=== PATIENT | female | born 1985 | race Caucasian/White ===

== ENCOUNTER 2021-06-27 10:11 | Inpatient (IN) ==
[2021-06-27] MEDS ORDERED: ACETAMINOPHEN 1000 MG/100 ML IV IV STA (11:38)
[2021-06-27] MEDS ORDERED: SODIUM CHLORIDE 0.9% 1000ML 1,000 ML IV ONE (11:38)
[2021-06-27] MEDS ORDERED: ONDANSETRON INJ 2 MG/ML 2 ML VIAL IV STA (11:38)
[2021-06-27 11:57] LABS: Basophils # (auto) 0.01 K/uL (0-0.2); Basophils % (auto) 0.1 %; Hematocrit (blood only) 36.4 % (37-47); Hemoglobin 12.8 g/dL (12.0-16.0); Immature Granulocytes # (auto) 0.08 K/uL (0.00-0.02); Immature Granulocytes % (auto) 0.6 %; Lymphocytes % (auto) 5.8 %; Mean Corpuscular Hemoglobin 31.1 pg (25-34); Mean Corpuscular Hgb Conc 35.2 g/dL (32-36); Mean Corpuscular Volume 88.3 fL (80-100); Monocytes # (auto) 0.55 K/uL (0.11-0.59); Neutrophils # (auto) 12.47 K/uL (1.4-6.5); Neutrophils % (auto) 89.5 %; Platelet Count 225 K/uL (130-400); RDW Coefficient of Variation 12.6 % (11.5-14.5); RDW Standard Deviation 40.8 fL (36.4-46.3); Red Blood Count 4.12 M/uL (4.2-5.4); White Blood Count 13.91 K/uL (4.8-10.8)
--- NOTE | 2021-06-27 12:08 | Emergency Department Note ---
History of Present Illness General Chief complaint: Abdominal Pain Stated complaint: Abdominal Pain Time Seen by Provider: 06/27/21 10:40 History of Present Illness Maximum Pain Intensity: 9 36-year-old female who presents to the emergency department with her for evaluation of left lower quadrant and left flank pain. Patient has also had generalized abdominal pain and diarrhea since awakening this morning. The patient is currently 7 weeks per ultrasound and [facility]. Her ultrasound was performed on 06/13/2021, showing a gestational sac measuring 5 weeks 2 days. It was recommended that the patient have another repeat ultrasound in 2 to 3 weeks. The patient reports that her pain is constant. She has had nausea and chills with one episode of vomiting this morning. The patient denies any preceding urinary symptoms. This is the patient's second with her first being a full-term vaginal delivery. The patient rates her discomfort a 9 out of 10. The patient has had a prior history of kidney stone, but reports that this feels different. Home Medications Medication Instructions Recorded Confirmed Type aspirin 81 mg tablet,delayed 81 mg PO DAILY 06/27/21 06/27/21 History release folic acid 1 mg tablet 1 mg PO DAILY 06/27/21 06/27/21 History Allergies Allergy/AdvReac Type Severity Reaction Status Date / Time No Known Allergies Allergy Unverified 06/27/21 11:25 Past Med/Surg History Medical History No significant past medical history Surgical History No significant past surgical history Social History Smoking Status: Never smoker Preferred Language: Lao marital status: Current Living Situation: Spouse and Family Feels Safe at Home: Yes Assistive Devices: Glasses Review of Systems Review of systems was limited secondary to language barrier, with abbreviated pertinent positives and negatives as indicated in HPI, and reviewed with the patient and . Physical Exam Vital Signs Vital Signs - 24 hr 06/27/21 10:26 06/27/21 12:56 06/27/21 14:50 Temperature 36.9 C Temperature Source Temporal Artery Scan Pulse Rate 75 Pulse Rate [Finger] 66 68 Respiratory Rate 18 20 20 Respiratory Effort / Characteristics Non-Labored Spontaneous Non-Labored Spontaneous Non-Labored Spontaneous Respiratory Depth Normal Normal Normal Respiratory Pattern Regular Regular Regular Blood Pressure 118/79 Blood Pressure [Right Arm] 122/89 123/78 Blood Pressure Mean 92 Blood Pressure Mean [Right Arm] 100 93 Blood Pressure Position Sitting Blood Pressure Position [Right Arm] Lying Pulse Oximetry 99 100 100 Oxygen Delivery Method Room Air Room Air Room Air Sepsis Recent Fever Within 48 Hours No Sepsis New/Unexplained Change in Mental Status N/A Sepsis Action Taken by Nursing No Action Required CONSTITUTIONAL: Healthy and well nourished. Patient appears in moderate discomfort. HEENT: Normocephalic, atraumatic. No obvious scleral icterus or conjunctival injection/pallor. RESPIRATORY: Clear to auscultation bilaterally with no wheezing, crackles, rhonchi or stridor. CARDIOVASCULAR: Regular rate and rhythm with no murmurs, rubs or gallops. GASTROINTESTINAL: Bowel sounds present in all quadrants. Examination shows left lower quadrant tenderness to palpation. Positive left CVA tenderness. Negative McBurney's point tenderness. No rigidity, guarding or rebound. MUSCULOSKELETAL: Full range of motion of all joints without discomfort. INTEGUMENTARY: No rash or other significant dermatologic conditions noted. HEMATOLOGIC: No ecchymosis or petechiae. PSYCHIATRIC: Positive affect. NEUROLOGIC: No focal neurologic deficits noted. Course Course Patient history and physical exam were performed. Nurses notes were reviewed. Vital signs were reviewed and were normal. IV access was established, and labs were drawn. The patient was hydrated with a liter normal saline, and was administered IV Tylenol and Zofran for pain. Review of labs shows an elevated white count of almost 14,000 with left shift and a percent bandemia. CMP shows mild hyponatremia, otherwise creatinine and LFTs are normal. Quantitative hCG is consistent with gestational age. Urinalysis is not suggestive of infection, however urine cultures were ordered. OB ultrasound shows a normal single intrauterine gestation with approximated gestational age of 7 weeks and 5 days. Renal ultrasound shows mild left-sided hydroureteronephrosis secondary to a 5 mm obstructing calculus of the distal left ureter. Patient also has gallbladder distention with cholelithiasis, and no obvious gallbladder wall thickening, pericholecystic fluid or common bile duct dilatation that would be consistent with atypical cholecystitis. Findings were discussed with the patient and . The patient reported persistent poor pain control, which is to be expected with only IV Tylenol. I did recommend administering a small amount of IV opioid to help further with the pain. The patient and had a lot of questions regarding the safety of opioids during . I explained that long-term use is more of a concern as opposed to short-term use, however it is impossible to totally negate the risk during . With shared medical decision making, the patient and elected to have administration of something stronger for pain. The case was also discussed with Dr. Kumar, ED attending physician, who recommended discussing the case with urology. I did have a phone call with [facility], who indicated that they would not attempt any type of intervention with the patient, and if she were to develop an infection, would likely need to be transferred to a tertiary care facility for further management. They do feel that the patient is an acceptable risk, and did recommend hospital observation. I then discussed the case further with the Dr. Cortes, [facility] Hospitalist, who evaluated the patient and agrees to observation status with IV hydration and analgesics as needed. Dr. Cortes also agreed to administer IV antibiotics to hopefully prevent risk for infection. Please see her dictation for further treatment and final disposition. Administered Medications Discontinued Medications Acetaminophen (Acetaminophen 1000 Mg/100 Ml Iv) 1,000 mg IV NOW STA Stop: 06/27/21 11:39 Last Admin: 06/27/21 11:54 Dose: 1,000 mg Documented by: [id number] Sodium Chloride (Nss 1000ml) 1,000 mls @ 999 mls/hr IV .Q1H1M ONE Stop: 06/27/21 12:38 Last Infusion: 06/27/21 12:57 Dose: 0 mls/hr Documented by: [id number] Admin: 06/27/21 11:54 Dose: 999 mls/hr Documented by: [id number] Morphine Sulfate (Morphine Sulfate 4 Mg/Ml 1 Ml Carp\Vial) 4 mg IV NOW STA Stop: 06/27/21 13:47 Last Admin: 06/27/21 14:02 Dose: 4 mg Documented by: [id number] Ondansetron HCl (Ondansetron Inj 2 Mg/Ml 2 Ml Vial) 4 mg IV NOW STA Stop: 06/27/21 11:39 Last Admin: 06/27/21 11:54 Dose: 4 mg Documented by: [id number] Medical Decision Making Medical Records Attestation: I reviewed the patient's medical records. Home Medications Current Medication List: was personally reviewed by me Laboratory Data Attestation: I reviewed the patient's lab results. Result diagrams: 06/27/21 11:45 06/27/21 11:45 Lab Results 06/27/21 06/27/21 06/27/21 Range/Units 11:45 11:45 11:45 WBC 13.91 H (4.8-10.8) K/uL RBC 4.12 L (4.2-5.4) M/uL Hgb 12.8 (12.0-16.0) g/dL Hct 36.4 L (37-47) % MCV 88.3 (80-100) fL MCH 31.1 (25-34) pg MCHC 35.2 (32-36) g/dL RDW Std Deviation 40.8 (36.4-46.3) fL RDW Coeff of Renaldo 12.6 (11.5-14.5) % Plt Count 225 (130-400) K/uL MPV 10.0 (7.4-10.4) fL Immature Gran % (Auto) 0.6 % Neut % (Auto) 89.5 % Lymph % (Auto) 5.8 % [place] % (Auto) 4.0 % Eos % (Auto) 0.0 % Baso % (Auto) 0.1 % Neut # (Auto) 12.47 H (1.4-6.5) K/uL Lymph # (Auto) 0.80 L (1.2-3.4) K/uL [place] # (Auto) 0.55 (0.11-0.59) K/uL Eos # (Auto) 0.00 (0-0.5) K/uL Baso # (Auto) 0.01 (0-0.2) K/uL Immature Gran # (Auto) 0.08 H (0.00-0.02) K/uL Sodium 135 L (136-145) mmol/L Potassium 4.6 (3.5-5.1) mmol/L Chloride 106 (98-107) mmol/L Carbon Dioxide 24 (21-32) mmol/L Anion Gap 5.0 (3-11) BUN 8 (7-18) mg/dl Creatinine 0.56 L (0.6-1.2) mg/dl Est Cr Clr Drug Dosing 109.7 ml/min Est GFR ( Amer) 141.0 ml/min Est GFR (Non-Af Amer) 121.7 ml/min BUN/Creatinine Ratio 15.1 (10-20) Glucose 111 H (70-99) mg/dl Calcium 8.8 (8.5-10.1) mg/dl Total Bilirubin 0.3 (0.2-1) mg/dl AST 14 L (15-37) U/L ALT 22 (12-78) U/L Alkaline Phosphatase 54 (45-117) U/L Total Protein 7.7 (6.4-8.2) gm/dl Albumin 3.7 (3.4-5.0) gm/dl Globulin 4.0 (2.5-4.0) gm/dl Albumin/Globulin Ratio 0.9 (0.9-2) HCG, Quant 466690 mIU/ml Urine Color Urine Appearance (Clear) Urine pH (4.5-7.5) Ur Specific [place] (1.000-1.030) Urine Protein (Negative) Urine Glucose (UA) (Negative) Urine Ketones (Negative) Urine Blood (Negative) Urine Nitrite (Negative) Urine Bilirubin (Negative) Urine Urobilinogen (Negative) Ur Leukocyte Esterase (Negative) Urine WBC (Auto) (0-5) /hpf Urine RBC (Auto) (0-4) /hpf U Hyaline Cast (Auto) (0-5) /lpf U Epithel Cells (Auto) (0-5) /lpf Urine Bacteria (Auto) (Negative) COVID-19 Eval Order SARS-CoV-2 (PCR) (Negative) 06/27/21 06/27/21 06/27/21 Range/Units 12:50 14:32 14:32 WBC (4.8-10.8) K/uL RBC (4.2-5.4) M/uL Hgb (12.0-16.0) g/dL Hct (37-47) % MCV (80-100) fL MCH (25-34) pg MCHC (32-36) g/dL RDW Std Deviation (36.4-46.3) fL RDW Coeff of Renaldo (11.5-14.5) % Plt Count (130-400) K/uL MPV (7.4-10.4) fL Immature Gran % (Auto) % Neut % (Auto) % Lymph % (Auto) % [place] % (Auto) % Eos % (Auto) % Baso % (Auto) % Neut # (Auto) (1.4-6.5) K/uL Lymph # (Auto) (1.2-3.4) K/uL [place] # (Auto) (0.11-0.59) K/uL Eos # (Auto) (0-0.5) K/uL Baso # (Auto) (0-0.2) K/uL Immature Gran # (Auto) (0.00-0.02) K/uL Sodium (136-145) mmol/L Potassium (3.5-5.1) mmol/L Chloride (98-107) mmol/L Carbon Dioxide (21-32) mmol/L Anion Gap (3-11) BUN (7-18) mg/dl Creatinine (0.6-1.2) mg/dl Est Cr Clr Drug Dosing ml/min Est GFR ( Amer) ml/min Est GFR (Non-Af Amer) ml/min BUN/Creatinine Ratio (10-20) Glucose (70-99) mg/dl Calcium (8.5-10.1) mg/dl Total Bilirubin (0.2-1) mg/dl AST (15-37) U/L ALT (12-78) U/L Alkaline Phosphatase (45-117) U/L Total Protein (6.4-8.2) gm/dl Albumin (3.4-5.0) gm/dl Globulin (2.5-4.0) gm/dl Albumin/Globulin Ratio (0.9-2) HCG, Quant mIU/ml Urine Color Yellow Urine Appearance Clear (Clear) Urine pH 6.5 (4.5-7.5) Ur Specific [place] 1.024 (1.000-1.030) Urine Protein Negative (Negative) Urine Glucose (UA) Negative (Negative) Urine Ketones Trace H (Negative) Urine Blood Negative (Negative) Urine Nitrite Negative (Negative) Urine Bilirubin Negative (Negative) Urine Urobilinogen Negative (Negative) Ur Leukocyte Esterase Trace H (Negative) Urine WBC (Auto) 5-10 H (0-5) /hpf Urine RBC (Auto) 0-4 (0-4) /hpf U Hyaline Cast (Auto) 1-5 (0-5) /lpf U Epithel Cells (Auto) >30 H (0-5) /lpf Urine Bacteria (Auto) 1+ H (Negative) COVID-19 Eval Order Covid19 at [facility] SARS-CoV-2 (PCR) NEGATIVE (Negative) Imaging Data Attestation: I personally reviewed and interpreted this imaging study as follows: My Impression: ultrasound shows a single intrauterine gestation with estimated gestational age of 7 weeks and 5 days. Retroperitoneal ultrasound shows a mild hydroureteronephrosis with a 5 mm obstructing calculus within the distal left ureter. Radiologist also makes mention of gallbladder distention with cholelithiasis, and no obvious evidence for cholecystitis. Radiologist reports were reviewed. Radiologist's Impression: Ultrasound 06/27/21 11:38 US OB <= 14 weeks fetus HISTORY: 36 years-old Female LLQ/L flank pain - 7 wks acute left-sided flank pain with COMPARISON: Renal ultrasound of same day TECHNIQUE: Multiple real-time sonographic images of the deep pelvic structures were obtained transabdominally assessing grayscale appearance, color and spectral flow FINDINGS: Anteflexed gravid uterus measures 10.1 x 6.6 x 7.0 cm containing a 2.7 cm gesta tional sac correlating with estimated gestational age of 7 weeks 3 days. 4 mm yolk sac. The fetus demonstrates crown-rump length of 1.4 cm correlating with estimated gestational age of 7 weeks 5 days. heart rate measured at 143 bpm. The right ovary measures 2.0 x 2.0 x 2.6 cm with arterial inflow. The left ovary is not diagnostically visualized. No significant free pelvic fluid. The transvaginal component of the study was declined by the patient. IMPRESSION: 1. Single living intrauterine gestation with estimated gestational age of 7 weeks and 5 days. 2. Normal sonographic appearance of the right ovary. 3. Nonvisualization of the left ovary. ACT 112: Negative or not required by law. The above report was generated using voice recognition software. It may contain grammatical, syntax or spelling errors. Electronically signed by: Cecilio Jimenes M.D. 06/27/2021 12:43 PM Renal Ultrasound 06/27/21 12:00 US renal/blad retro comp HISTORY: 36 years-old Female L flank pain, +CVA, pregnent acute left-sided flank pain with COMPARISON: Pelvic ultrasound of same day TECHNIQUE: Multiple real-time sonographic images of the kidneys and urinary bladder were obtained assessing grayscale appearance and color flow FINDINGS: The right kidney measures 11.1 cm in length and demonstrates no renal calculi or hydronephrosis. Incidental note is made of a distended stone filled gallbladder. No associated gallbladder wall thickening or pericholecystic fluid identified. Left kidney measures 12.5 cm in length and demonstrates asymmetric perinephric stranding/edema. Mild left-sided hydroureteronephrosis with 5 mm calculus of the distal left ureter/ureterovesicular junction. Unremarkable urinary bladder with partial distention. Only the right ureteral jet is seen. IMPRESSION: 1. Mild left-sided hydroureteronephrosis secondary to a 5 mm obstructing calculus of the distal left ureter. 2. Normal right kidney. 3. Gallbladder distention with cholelithiasis. No gallbladder wall thickening or pericholecystic fluid identified to suggest acute cholecystitis. ACT 112: Negative or not required by law. The above report was generated using voice recognition software. It may contain grammatical, syntax or spelling errors. Electronically signed by: Cecilio Jimenes M.D. 06/27/2021 12:40 PM Blood Pressure Blood Pressure Findings: Normal blood pressure MDM Narrative Patient presents emergency department with complaint of rather severe left lower quadrant and left flank pain. The patient reports that she is currently . OB ultrasound did not show any acute abnormalities. Retroperitoneal ultrasound shows evidence for a 5 mm distal left ureteral calculus with mild hydroureteronephrosis. Urinalysis is not consistent with infection. The patient has no evidence for acute kidney injury. Patient is also afebrile and has no significant leukocytosis to suggest infection. Additional laboratory studies are not suggestive of pancreatitis, cholecystitis or hepatitis. The patient is noted to have cholelithiasis on ultrasound without evidence for cholecystitis. The patient is certainly at risk for complication given her state, and I do feel that observation is warranted for pain control, hydration and hopefully passage of the ureteral calculus. Impression & Plan Calculus of distal left ureter, Cholelithiasis, Intrauterine normal Discharge Plan Visit Data Chief Complaint: Abdominal Pain Stated Complaint: Abdominal Pain ED Midlevel Provider: Faribault,Brody G Discharge Problem: Calculus of distal left ureter, Cholelithiasis, Intrauterine normal Patient Disposition: Admitted As Inpatient Discharge Instructions Interventions: ED Discharge Assessment Last Done: 06/27/21 16:32 Discharge Problem: Cholelithiasis Qualifiers: Cholelithiasis location: gallbladder Cholecystitis presence: without cholecystitis Biliary obstruction: without biliary obstruction Qualified Code(s): K80.20 - Calculus of gallbladder without cholecystitis without obstruction Intrauterine normal Qualifiers: Trimester: first trimester Qualified Code(s): Z34.91 - Encounter for supervision of normal , unspecified, first trimester
[2021-06-27 12:17] LABS: Albumin Level 3.7 gm/dl (3.4-5.0); BUN Creatinine Ratio 15.1 (10-20); Calcium 8.8 mg/dl (8.5-10.1); Creatinine Clr Calc Pharmacy 109.7 ml/min; Est GFR (Non-African American) 121.7 ml/min; Potassium 4.6 mmol/L (3.5-5.1)
[2021-06-27 12:20] LABS: Albumin Globulin Ratio 0.9 (0.9-2); Bilirubin,Total 0.3 mg/dl (0.2-1); Total Protein 7.7 gm/dl (6.4-8.2)
--- NOTE | 2021-06-27 12:41 | Ultrasound Report ---
US renal/blad retro comp HISTORY: 36 years-old Female L flank pain, +CVA, pregnent acute left-sided flank pain with COMPARISON: Pelvic ultrasound of same day TECHNIQUE: Multiple real-time sonographic images of the kidneys and urinary bladder were obtained ass essing grayscale appearance and color flow FINDINGS: The right kidney measures 11.1 cm in length and demonstrates no renal calculi or hydronephrosis. Incidental note is made of a distended stone filled gallbladder. No associated gallbladder wall thick ening or pericholecystic fluid identified. Left kidney measures 12.5 cm in length and demonstrates asymmetric perinephric stranding/edema. Mild left-sided hydroureteronephrosis with 5 mm calculus of the distal left ureter/ureterovesicular juncti on. Unremarkable urinary bladder with partial distention. Only the right ureteral jet is seen. IMPRESSION: 1. Mild left-sided hydroureteronephrosis secondary to a 5 mm obstructing calculus of the distal left ureter. 2. Normal right kidney. 3. Gallbladder distention with cholelithiasis. No gallbladder wall thickening or pericholecystic flui d identified to suggest acute cholecystitis. ACT 112: Negative or not required by law. The above report was generated using voice recognition software. It may contain grammatical, syntax o r spelling errors. Electronically signed by: Cecilio Jimenes M.D. 06/27/2021 12:40 PM
--- NOTE | 2021-06-27 12:44 | Ultrasound Report ---
US OB <= 14 weeks fetus HISTORY: 36 years-old Female LLQ/L flank pain - 7 wks acute left-sided flank pain with preg emilie COMPARISON: Renal ultrasound of same day TECHNIQUE: Multiple real-time sonographic images of the deep pelvic structures were obtained transabd ominally assessing grayscale appearance, color and spectral flow FINDINGS: Anteflexed gravid uterus measures 10.1 x 6.6 x 7.0 cm containing a 2.7 cm gestational sac correlating with estimated gestational age of 7 weeks 3 days. 4 mm yolk sac. The fetus demonstrates crown-rump l ength of 1.4 cm correlating with estimated gestational age of 7 weeks 5 days. heart rate measur ed at 143 bpm. The right ovary measures 2.0 x 2.0 x 2.6 cm with arterial inflow. The left ovary is not diagnosticall y visualized. No significant free pelvic fluid. The transvaginal component of the study was declined by the patient. IMPRESSION: 1. Single living intrauterine gestation with estimated gestational age of 7 weeks and 5 days. 2. Normal sonographic appearance of the right ovary. 3. Nonvisualization of the left ovary. ACT 112: Negative or not required by law. The above report was generated using voice recognition software. It may contain grammatical, syntax o r spelling errors. Electronically signed by: Cecilio Jimenes M.D. 06/27/2021 12:43 PM
[2021-06-27 13:08] LABS: Appearance Urine Clear (Clear); Bacteria Urine Automated 1+ (Negative); Bilirubin Urine Negative (Negative); Blood Urine Negative (Negative); Color Urine Yellow; Epithelial Cell Urine Auto >30 /lpf (0-5); Glucose Urine UA Negative (Negative); Ketones Urine Trace (Negative); Leukocyte Esterase Urine Trace (Negative); Nitrite Urine Negative (Negative); Protein Urine Negative (Negative); RBC Urine Automated 0-4 /hpf (0-4); Specific Gravity Urine 1.024 (1.000-1.030); Urobilinogen Urine Negative (Negative); pH Urine 6.5 (4.5-7.5)
[2021-06-27] MEDS ORDERED: MoRPHine SULFATE 4 MG/ML 1 ML CARP\\VIAL IV STA (13:46)
[2021-06-27] MEDS ORDERED: ACETAMINOPHEN 325 MG TAB PO PRN (17:10)
[2021-06-27] MEDS ORDERED: MoRPHine SULFATE 2 MG/ML CARP IV PRN ×4 (17:10→20:30)
[2021-06-27] MEDS: SODIUM CHLORIDE 0.9% 1000ML 1,000 ML IV SCH (17:35)
[2021-06-27] MEDS ORDERED: cefTRIAXone SODIUM 1,000 MG in DEXTROSE 5% 50 ML IV SCH (18:00)
[2021-06-27] MEDS ORDERED: ONDANSETRON INJ 2 MG/ML 2 ML VIAL IV PRN (19:49)
--- NOTE | 2021-06-27 20:22 | Urology Consultation ---
Date of Consultation June 27, 2021 Assessment & Plan (1) Calculus of distal left ureter: The patient has been admitted to the hospital in the hospital service proceeding as follows: Analgesics will be provided Antiemetics will be provided IV fluid for hydration will be provided Urine culture has been sent and as the patient has noted to have bacteria she has been placed on antibiotics in form of Rocephin. Antibiotics can be tailored based on culture results As patient is noted to have a 5 mm stone I have explained to the patient and her sister that since she is afebrile we will employ a trial of stone passage with the above-noted measures. If the patient becomes febrile she may require urgent intervention in the form of cystoscopy with stent placement or percutaneous nephrostomy. If the patient does become febrile due to her she may require transfer to an alternative facility. Please contact urology if patient does become febrile. Additional recommendations will be forthcoming based on her clinical course as unfolds Trial of passage overnight . If febrile would pass stent . If pain remains ongoing would discuss ureteroscopy possibly at tertiary center History of Present Illness Reason for Consultation: Nephrolithiasis Attending Physician: Dianna Cortes DO History of Present Illness From [place] [facility]. She speaks some Nepali but her sister was present at bedside who helped with communication issues. Earlier this morning this patient developed some pain in the left flank area that radiated to the left anterior abdomen into her left groin. She has had associated nausea vomiting. She denies any fevers, shakes, chills. She denies any dysuria or hematuria. The patient does add that she is approximately 7 weeks . Because of her symptomatology she presented to the emergency department. In the emergency department she had labs and imaging which independent reviewed. She did have a renal ultrasound that showed mild left-sided hydroureteronephrosis felt to be due to a 5 mm obstructing kidney stone in the distal left ureter. The patient was noted to have gallbladder distention with gallstones however no gallbladder wall thickening or pericholecystic fluid were noted to suggest cholecystitis. Patient also had a ultrasound which showed an intrauterine gestation with an estimated gestational age of 7 weeks. Labs were performed where patient's white blood cell count was elevated at 13.9. Her hemoglobin is within normal range. Patient was noted to have a normal platelet count. A chemistry profile showed her sodium was 135. Potassium and BUN were noted to be normal. Her creatinine was actually low at 0.5. There were no elevation of her LFTs. Patient did have a urinalysis that showed trace leukocyte esterase, 5-10 white blood cells per high-power field, and 1+ bacteria. A Covid test was performed and was noted to be negative. At the time of my interview the patient did not appear to be in any distress. Allergies Allergy/AdvReac Type Severity Reaction Status Date / Time No Known Allergies Allergy Unverified 06/27/21 11:25 Home Medications Medication Instructions Recorded Confirmed Type aspirin 81 mg tablet,delayed 81 mg PO DAILY 06/27/21 06/27/21 History release folic acid 1 mg tablet 1 mg PO DAILY 06/27/21 06/27/21 History Patient History Medical History No significant past medical history Surgical History No significant past surgical history Social History Smoking Status: Never smoker Hx Alcohol Use: No Hx Substance Use: No Preferred Language: Maltese Communication Ability: Effective Water Meter Mechanic Required: Yes Beliefs That Will Affect Care: Spiritual and Cultural marital status: Current Living Situation: Spouse and Family Other Information That Helps Us Care for You: No Feels Safe at Home: Yes Safety Concerns: Feels Safe At This Time Assistive Devices: Glasses Review of Systems Constitutional: as per Subjective / HPI; no fever and no chills Eyes: no corrective lenses Ear, Nose, Mouth, Throat: no hearing loss Respiratory: no cough and no dyspnea Cardiovascular: no chest pain Gastrointestinal: + abdominal pain, + nausea and + vomiting Genitourinary: no dysuria and no hematuria Musculoskeletal: no back pain Integumentary: no rash Neurologic: no localized weakness Physical Exam Constitutional: well developed and well nourished; no acute distress Eyes: no conjunctival abnormality ENMT: Ears: no hearing impairment Neck: trachea midline Respiratory: normal respiratory effort, lungs clear to auscultation Cardiovascular: Rate/Rhythm: regular rate and regular rhythm Gastrointestinal (Abdomen): Abdomen is soft and nondistended. The patient did have pain noted with palpation Musculoskeletal: No calf tenderness Skin: no rashes Neurologic: moves all extremities Results & Data (MN) Vital Signs (Past 12 Hours) Vital Signs Temp Pulse Pulse Resp BP BP Pulse Ox 06/27/21 17:12 37.2 C 87 18 121/86 100 06/27/21 16:22 72 20 117/78 99 06/27/21 14:50 68 20 123/78 100 06/27/21 12:56 66 20 122/89 100 06/27/21 10:26 36.9 C 75 18 118/79 99 PG Care Time/CCT Total # of Minutes Spent Total Time Spent with Patient: Total time spent is greater than 50% in coordination of care (as documented) at patient's floor/unit and/or counseling patient: Coding Level of Care Code 31527 Inpt Consult Level 5 Diagnoses Calculus of distal left ureter N20.1
--- NOTE | 2021-06-27 21:06 | History & Physical Report ---
Date of Service June 27, 2021 Assessment & Plan (1) Calculus of distal left ureter: Plan: 36yo female with no significant past medical or surgical history presenting with 1 day of left flank pain. Found with obstructing stone - 5mm at distal left ureter. Patient afebrile, HD stable, non-toxic in appearance. UA is poor specimen with >30 epithelial cells but WBC/LE and 1+ bacteria present -Admit to medical -IVF with NSS at 125mL/hr -Ceftriaxone 1gm IV daily -Pain control with Morphine 1mg IV q 4 hours -Zofran PRN (2) Intrauterine normal : Plan: Patient presently 7 weeks . US confirmation of single living intrauterine gestation with estimated age of 7 weeks and 5 days -Avoid teratogenic agents -Continue Folic acid -Patient is on ASA as well - will continue Plan: F/E/N - NSS at 125mL/hr x 2 liters, monitor electrolytes - chemistry in AM, NPO Ppx - SCDs Code - Full Dispo - Admit to medical Admission and Anticipated Discharge Date Admission Date: June 27, 2021 History of Present Illness Chief Complaint: left flank pain Primary Care Provider: NO PCP Brigette Sabrina reyna is a 36yo female from [place] [facility] presently 7 weeks presenting with left flank pain that began this AM. Pain is severe, radiating into left anterior abdomen and groin. She has had mild nausea and non-bloody/non-bilious emesis as well as dysuria and diarrhea. She denies fever/chills/rigors. No additional complaints at this time. Found with a 5mm distal ureteral stone ER Course: Tylenol, Morphine, Zofran Allergies Allergy/AdvReac Type Severity Reaction Status Date / Time No Known Allergies Allergy Unverified 06/27/21 11:25 Home Medications Medication Instructions Recorded Confirmed Type aspirin 81 mg tablet,delayed 81 mg PO DAILY 06/27/21 06/27/21 History release folic acid 1 mg tablet 1 mg PO DAILY 06/27/21 06/27/21 History Past Med/Surg History Medical History No significant past medical history Surgical History No significant past surgical history Social History Smoking Status: Never smoker Hx Alcohol Use: No Hx Substance Use: No Preferred Language: Italian Communication Ability: Effective Associate 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 Beliefs That Will Affect Care: Spiritual and Cultural marital status: Current Living Situation: Spouse and Family Other Information That Helps Us Care for You: No Feels Safe at Home: Yes Safety Concerns: Feels Safe At This Time Assistive Devices: Glasses Review of Systems Review of Systems: All systems reviewed & are unremarkable except as noted in HPI & below Physical Exam Physical Exam: General: patient resting comfortably, NAD, non-toxic in appearance, AA&O x 4 Skin: warm, dry, intact, no rashes or lesions HEENT: NC/AT, PERRL, EOMI, anicteric sclera, conjunctiva without injection, external ear normal to inspection and nontender, nares patent, moist mucus me mbranes, dentition intact, no oropharyngeal lesions, neck supple, trachea midline, no LAD, no thyromegaly, no JVD Heart: +S1/S2, regular, no m/r/g Lungs: equal air entry bilaterally, no rales/rhonchi/wheezes Abd: +BS, soft, NT/ND, no masses/organomegaly/ascites Ext: warm, 2+ pulses in UE/LE bilaterally, no clubbing/cyanosis or edema Neuro: nonfocal, patient AA&O x 4, speech intact, no facial droop, moving all extremities on command with equal strength 5/5 Results & Data Results & Data (MN) Vital Signs (Past 12 Hours) Vital Signs Temp Pulse Pulse Resp BP BP Pulse Ox 06/27/21 17:12 37.2 C 87 18 121/86 100 06/27/21 16:22 72 20 117/78 99 06/27/21 14:50 68 20 123/78 100 06/27/21 12:56 66 20 122/89 100 06/27/21 10:26 36.9 C 75 18 118/79 99 Laboratory Results Laboratory Results WBC 13.91 K/uL (4.8-10.8) H 06/27/21 11:45 RBC 4.12 M/uL (4.2-5.4) L 06/27/21 11:45 Hgb 12.8 g/dL (12.0-16.0) 06/27/21 11:45 Hct 36.4 % (37-47) L 06/27/21 11:45 MCV 88.3 fL (80-100) 06/27/21 11:45 MCH 31.1 pg (25-34) 06/27/21 11:45 MCHC 35.2 g/dL (32-36) 06/27/21 11:45 RDW Std Deviation 40.8 fL (36.4-46.3) 06/27/21 11:45 RDW Coeff of Renaldo 12.6 % (11.5-14.5) 06/27/21 11:45 Plt Count 225 K/uL (130-400) 06/27/21 11:45 MPV 10.0 fL (7.4-10.4) 06/27/21 11:45 Immature Gran % (Auto) 0.6 % 06/27/21 11:45 Neut % (Auto) 89.5 % 06/27/21 11:45 Lymph % (Auto) 5.8 % 06/27/21 11:45 [place] % (Auto) 4.0 % 06/27/21 11:45 Eos % (Auto) 0.0 % 06/27/21 11:45 Baso % (Auto) 0.1 % 06/27/21 11:45 Neut # (Auto) 12.47 K/uL (1.4-6.5) H 06/27/21 11:45 Lymph # (Auto) 0.80 K/uL (1.2-3.4) L 06/27/21 11:45 [place] # (Auto) 0.55 K/uL (0.11-0.59) 06/27/21 11:45 Eos # (Auto) 0.00 K/uL (0-0.5) 06/27/21 11:45 Baso # (Auto) 0.01 K/uL (0-0.2) 06/27/21 11:45 Immature Gran # (Auto) 0.08 K/uL (0.00-0.02) H 06/27/21 11:45 Sodium 135 mmol/L (136-145) L 06/27/21 11:45 Potassium 4.6 mmol/L (3.5-5.1) 06/27/21 11:45 Chloride 106 mmol/L (98-107) 06/27/21 11:45 Carbon Dioxide 24 mmol/L (21-32) 06/27/21 11:45 Anion Gap 5.0 (3-11) 06/27/21 11:45 BUN 8 mg/dl (7-18) 06/27/21 11:45 Creatinine 0.56 mg/dl (0.6-1.2) L 06/27/21 11:45 Est Cr Clr Drug Dosing 109.7 ml/min 06/27/21 11:45 Est GFR ( Amer) 141.0 ml/min 06/27/21 11:45 Est GFR (Non-Af Amer) 121.7 ml/min 06/27/21 11:45 BUN/Creatinine Ratio 15.1 (10-20) 06/27/21 11:45 Glucose 111 mg/dl (70-99) H 06/27/21 11:45 Calcium 8.8 mg/dl (8.5-10.1) 06/27/21 11:45 Total Bilirubin 0.3 mg/dl (0.2-1) 06/27/21 11:45 AST 14 U/L (15-37) L 06/27/21 11:45 ALT 22 U/L (12-78) 06/27/21 11:45 Alkaline Phosphatase 54 U/L (45-117) 06/27/21 11:45 Total Protein 7.7 gm/dl (6.4-8.2) 06/27/21 11:45 Albumin 3.7 gm/dl (3.4-5.0) 06/27/21 11:45 Globulin 4.0 gm/dl (2.5-4.0) 06/27/21 11:45 Albumin/Globulin Ratio 0.9 (0.9-2) 06/27/21 11:45 HCG, Quant [id number] mIU/ml 06/27/21 11:45 Urine Color Yellow 06/27/21 12:50 Urine Appearance Clear (Clear) 06/27/21 12:50 Urine pH 6.5 (4.5-7.5) 06/27/21 12:50 Ur Specific [place] 1.024 (1.000-1.030) 06/27/21 12:50 Urine Protein Negative (Negative) 06/27/21 12:50 Urine Glucose (UA) Negative (Negative) 06/27/21 12:50 Urine Ketones Trace (Negative) H 06/27/21 12:50 Urine Blood Negative (Negative) 06/27/21 12:50 Urine Nitrite Negative (Negative) 06/27/21 12:50 Urine Bilirubin Negative (Negative) 06/27/21 12:50 Urine Urobilinogen Negative (Negative) 06/27/21 12:50 Ur Leukocyte Esterase Trace (Negative) H 06/27/21 12:50 Urine WBC (Auto) 5-10 /hpf (0-5) H 06/27/21 12:50 Urine RBC (Auto) 0-4 /hpf (0-4) 06/27/21 12:50 U Hyaline Cast (Auto) 1-5 /lpf (0-5) 06/27/21 12:50 U Epithel Cells (Auto) >30 /lpf (0-5) H 06/27/21 12:50 Urine Bacteria (Auto) 1+ (Negative) H 06/27/21 12:50 COVID-19 Eval Order Covid19 at [facility] 06/27/21 14:32 SARS-CoV-2 (PCR) NEGATIVE (Negative) 06/27/21 14:32 Impressions Ultrasound 06/27/21 11:38 US OB <= 14 weeks fetus HISTORY: 36 years-old Female LLQ/L flank pain - 7 wks acute left-sided flank pain with COMPARISON: Renal ultrasound of same day TECHNIQUE: Multiple real-time sonographic images of the deep pelvic structures were obtained transabdominally assessing grayscale appearance, color and spectral flow FINDINGS: Anteflexed gravid uterus measures 10.1 x 6.6 x 7.0 cm containing a 2.7 cm gestational sac correlating with estimated gestational age of 7 weeks 3 days. 4 mm yolk sac. The fetus demonstrates crown-rump length of 1.4 cm correlating with estimated gestational age of 7 weeks 5 days. heart rate measured at 143 bpm. The right ovary measures 2.0 x 2.0 x 2.6 cm with arterial inflow. The left ovary is not diagnostically visualized. No significant free pelvic fluid. The transvaginal component of the study was declined by the patient. IMPRESSION: 1. Single living intrauterine gestation with estimated gestational age of 7 weeks and 5 days. 2. Normal sonographic appearance of the right ovary. 3. Nonvisualization of the left ovary. ACT 112: Negative or not required by law. The above report was generated using voice recognition software. It may contain grammatical, syntax or spelling errors. Electronically signed by: Cecilio Jimenes M.D. 06/27/2021 12:43 PM Renal Ultrasound 06/27/21 12:00 US renal/blad retro comp HISTORY: 36 years-old Female L flank pain, +CVA, pregnent acute left-sided flank pain with COMPARISON: Pelvic ultrasound of same day TECHNIQUE: Multiple real-time sonographic images of the kidneys and urinary bladder were obtained assessing grayscale appearance and color flow FINDINGS: The right kidney measures 11.1 cm in length and demonstrates no renal calculi or hydronephrosis. Incidental note is made of a distended stone filled gallbladder. No associated gallbladder wall thickening or pericholecystic fluid identified. Left kidney measures 12.5 cm in length and demonstrates asymmetric perinephric stranding/edema. Mild left-sided hydroureteronephrosis with 5 mm calculus of the distal left ureter/ureterovesicular junction. Unremarkable urinary bladder with partial distention. Only the right ureteral jet is seen. IMPRESSION: 1. Mild left-sided hydroureteronephrosis secondary to a 5 mm obstructing calculus of the distal left ureter. 2. Normal right kidney. 3. Gallbladder distention with cholelithiasis. No gallbladder wall thickening or pericholecystic fluid identified to suggest acute cholecystitis. ACT 112: Negative or not required by law. The above report was generated using voice recognition software. It may contain grammatical, syntax or spelling errors. Electronically signed by: Cecilio Jimenes M.D. 06/27/2021 12:40 PM Code Status & VTE Plan VTE Prophylaxis Plan VTE Prophylaxis will be ordered: Yes PG Care Time/CCT Total # of Minutes Spent Total Time Spent with Patient: Total time spent is greater than 50% in coordination of care (as documented) at patient's floor/unit and/or counseling patient: Coding Level of Care Code 82182 Initial Inpt Care Lvl 2 Diagnoses Calculus of distal left ureter N20.1 Intrauterine normal Z34.91 Trimester: first trimester (1) Intrauterine normal Trimester: first trimester Qualified Code(s): Z34.91 - Encounter for supervision of normal , unspecified, first trimester
[2021-06-28] MEDS ORDERED: ACETAMINOPHEN 1000 MG/100 ML IV IV PRN (00:43)
[2021-06-28] MEDS ORDERED: ACETAMINOPHEN 1000 MG/100 ML IV IV ONE (00:59)
[2021-06-28] MEDS: SODIUM CHLORIDE 0.9% 1000ML 1,000 ML IV SCH (01:02)
[2021-06-28] MEDS ORDERED: ACETAMINOPHEN 1,000 MG/100 ML VIAL IV PRN (01:15)
--- NOTE | 2021-06-28 08:08 | Urology Progress Note ---
Date of Service June 28, 2021 Assessment & Plan (1) Calculus of distal left ureter: Plan: 36yo F who is approximately 7 weeks admitted with flank pain secondary to a 5mm distal left ureteral stone - Afebrile, VSS. - Labs reviewed, Wbc and Cr stable. - UC&S pending. - Patient passed her ureteral stone this morning with complete resolution of symptoms. - Stone sent for analysis. - Ok for discharge from perspective. - Will arrange outpatient follow-up with urology service. - Thank you for allowing us to participate in the acute care of Ms. Bennett. Please reconsult us with additional questions, concerns or changes in patient status. Admission and Anticipated Discharge Date Admission Date: June 27, 2021 Subjective Pt examined at bedside this AM. Awake, alert, no acute distress. Language translation assisted by patient's sister per her request. Patient passed her stone this morning and had complete resolution of pain. No fevers or chills. No nausea or vomiting. Tolerating diet. Voiding without difficulty. Denies hematuria and dysuria. Eager to go home. No additional complaints Review of Systems Constitutional: as per Subjective / HPI Gastrointestinal: as per Subjective / HPI Genitourinary: as per Subjective / HPI Physical Exam Constitutional: well developed and well nourished; no acute distress Respiratory: normal respiratory effort; no labored breathing Gastrointestinal (Abdomen): Inspection/Auscultation: abdomen normal to inspection Neurologic: moves all extremities and awake Psychiatric: Orientation: alert, oriented x 3 and cooperative Results & Data (MN) Vital Signs (Past 12 Hours) Vital Signs Temp Pulse Resp BP Pulse Ox 06/28/21 07:42 36.9 C 64 16 96/63 L 94 06/27/21 23:12 36.7 C 65 14 114/77 99 PG Care Time/CCT Total # of Minutes Spent Total Time Spent with Patient: Total time spent is greater than 50% in coordination of care (as documented) at patient's floor/unit and/or counseling patient: Coding Level of Care Code 23582 Subseq Hosp Care Lvl 2 Diagnoses Calculus of distal left ureter N20.1
[2021-06-28] MEDS ORDERED: ASPIRIN 81 MG ECTAB PO SCH (09:00)
[2021-06-28] MEDS ORDERED: FOLIC ACID 1 MG TAB PO SCH (09:00)
[2021-06-28 09:18] LABS: Eosinophils # (auto) 0.02 K/uL (0-0.5); Eosinophils % (auto) 0.2 %; Hematocrit (blood only) 30.6 % (37-47); Hemoglobin 10.5 g/dL (12.0-16.0); Immature Granulocytes # (auto) 0.03 K/uL (0.00-0.02); Immature Granulocytes % (auto) 0.4 %; Lymphocytes % (auto) 14.4 %; Mean Corpuscular Hemoglobin 30.5 pg (25-34); Mean Corpuscular Hgb Conc 34.3 g/dL (32-36); Mean Platelet Volume 9.7 fL (7.4-10.4); Monocytes # (auto) 0.92 K/uL (0.11-0.59); Neutrophils # (auto) 6.19 K/uL (1.4-6.5); Platelet Count 169 K/uL (130-400); RDW Coefficient of Variation 13.1 % (11.5-14.5); RDW Standard Deviation 42.1 fL (36.4-46.3); Red Blood Count 3.44 M/uL (4.2-5.4); White Blood Count 8.36 K/uL (4.8-10.8)
[2021-06-28 09:58] LABS: BUN Creatinine Ratio 8.2 (10-20); Calcium 7.8 mg/dl (8.5-10.1); Creatinine Clr Calc Pharmacy 94.3 ml/min; Est GFR (African American) 134.3 ml/min; Est GFR (Non-African American) 115.8 ml/min; Potassium 3.5 mmol/L (3.5-5.1)
--- NOTE | 2021-06-28 10:56 | Discharge Summary ---
Date of Service June 28, 2021 Admission HPI Per Admitting Provider Brigette Bennett is a 36yo female from [place] presently 7 weeks presenting with left flank pain that began this AM. Pain is severe, radiating into left anterior abdomen and groin. She has had mild nausea and non-bloody/non-bilious emesis as well as dysuria and diarrhea. She denies fever/chills/rigors. No additional complaints at this time. Found with a 5mm distal ureteral stone ER Course: Tylenol, Morphine, Zofran Admission Exam Per Admitting Provider General: patient resting comfortably, NAD, non-toxic in appearance, AA&O x 4 Skin: warm, dry, intact, no rashes or lesions HEENT: NC/AT, PERRL, EOMI, anicteric sclera, conjunctiva without injection, external ear normal to inspection and nontender, nares patent, moist mucus membranes, dentition intact, no oropharyngeal lesions, neck supple, trachea midline, no LAD, no thyromegaly, no JVD Heart: +S1/S2, regular, no m/r/g Lungs: equal air entry bilaterally, no rales/rhonchi/wheezes Abd: +BS, soft, NT/ND, no masses/organomegaly/ascites Ext: warm, 2+ pulses in UE/LE bilaterally, no clubbing/cyanosis or edema Neuro: nonfocal, patient AA&O x 4, speech intact, no facial droop, moving all extremities on command with equal strength 5/5 Principal Diagnosis Left renal stone Discharge Exam Constitutional well developed and well nourished; no acute distress Eyes no conjunctival abnormality ENMT Ears: no hearing impairment Neck trachea midline Respiratory normal respiratory effort, lungs clear to auscultation normal respiratory effort; no labored breathing Cardiovascular Rate/Rhythm: regular rate and regular rhythm Gastrointestinal (Abdomen) normal bowel sounds, soft, nontender, no hepatosplenomegaly Inspection/Auscultation: abdomen normal to inspection No flank pain or CVA tenderness Skin no rashes Neurologic moves all extremities and awake Psychiatric Orientation: alert, oriented x 3 and cooperative Discharge Data Allergies Allergy/AdvReac Type Severity Reaction Status Date / Time No Known Allergies Allergy Unverified 06/27/21 11:25 Consultations 06/27/21 15:12 Consult Urology Routine Ordered Studies 06/27/21 11:38 US OB <= 14 weeks fetus Stat 06/27/21 12:00 US renal/blad retro comp Stat Hospital Course (1) Calculus of distal left ureter: Pt was hospitalized form 06/27 to 06/28 for flank pain due to left ureteral stone. Pt remained hemodynamically stable, afebrile. Leukocytosis prompted initiation of Ceftriaxone. Pt received IV fluids, PRNs for pain. Ultrasound revealed L sided hydroureteronephrosis and 5 mm calculus in distal ureter. Pt remained on IV fluids and spontaneously passed ureteral stone on morning of 06/28 with complete resolution of symptoms. She remained afebrile throughout stay and was discharged with stone sent for analysis. Will follow-up with urology outpatient. Total Time Total Time Spent Total Time Spent (In Minutes): 20 Discharge Plan Discharge Items Patient Disposition: Home - Self-Care Reason For Visit: LEFT RENAL STONE Discharge Diagnosis: Left distal ureteric stone Activity: Resume your previous activity Non-emergency contact: Primary Care Provider Call non-emergency contact if: you have any medication questions, your symptoms worsen, your pain is worsening and you have a fever Follow-up/Referrals: Genevieve Mancia MD, FACOG [Physician] - 07/08/21 3:30 pm (Nurse will call on July 05 @ 1:00 for a telephone visit,then on July 08 @ 3:30 will see patient at office) Janie Webb CRNP [Nurse Practitioner] - (Office will call patient with appointment date and time) Jj Maravilla DO [Physician] - 07/04/21 9:15 am Diet: Regular Addtl Attending Provider Instructions: Follow up with family physician in one week Follow up with urology - please call their office to set up appointment Keep up with fluid intake. Pending Studies at Discharge: No Stand-Alone Forms: My [employer], Opioid Pain Management, Work/School Release, Smoking Cessation Medications and DC Order Prescriptions: Continued aspirin 81 mg Tablet,Delayed Release (Dr/Ec) 81 mg PO DAILY RF: 0 folic acid 1 mg Tablet 1 mg PO DAILY RF: 0 Discharge Orders: Discharge Order (Routine); Ordered 06/28/21 Ordered By: Latha Jeffries/Other Patient Handouts: Preventing Kidney Stones Admission Data Admit Date/Time: 06/27/21 15:12 Attending Provider: Latha Narvaez Admit Provider: Dianna Cortes Primary Care Provider: PCP,NO Other Providers: Isaiah Lantigua ; Dianna Cortes Other Interventions: Discharge Summary Assessment (RN) Last Done: 06/28/21 11:09 Supervising Physician Co-Signing Physician Notes Resident Physician Supervision Note: I independently interviewed and examined the patient and verified the horne history and physical, reviewed labs and image studies and agree with resident Dr. Diego findings and care plan. Resident Activity Tracking Resident Involvement: Resident Care Provided Care Provided: Adult [facility]
[2021-07-03 23:21] LABS: Component 2 DNR; Source KIDNEY
== END 2021-06-28 12:04 | disposition home or self-care (01) | DRG 832 ==
LOC: ED 10:11 → SUATTDRO 15:12 → 3W 15:12

== ENCOUNTER 2022-02-04 22:28 | Inpatient (IN) ==
[2022-02-04] MEDS ORDERED: OXYTOCIN 30 UNITS/500 ML BAG IV PRN (22:34)
--- NOTE | 2022-02-04 22:41 | History & Physical Report ---
Date of Service February 04, 2022 Assessment & Plan (1) Supervision of normal intrauterine in multigravida: Plan: 37yo at 39w5d GA. Labor. 1. Fetus: Cat 1 2. Labor: Active 3. GBS negative 4. GDM: Diet controlled. BGx1 5. Vitals: Normal (2) Gestational diabetes mellitus (GDM) affecting , antepartum: (3) Normal labor: History of Present Illness Primary Care Provider: NO PCP 37yo at 39w5d GA. Presents in labor. Denies LOF, VB. Good FM. complicated by A1gDM Labs: OB Labs: Blood Type A Positive 08/28/21 Antibody Screen NEGATIVE 08/28/21 Hemoglobin 10.3 g/dL (12.0-16.0) L 11/25/21 Hematocrit 32.3 % (37-47) L 11/25/21 Mean Corpuscular Volume 91.0 fL (80-100) 08/28/21 Platelet Count 254 K/uL (130-400) 08/28/21 Rubella IgG Antibody Immune (Immune) 08/28/21 Rapid Plasma Reagin Nonreactive (Nonreactive) 08/28/21 Hepatitis B Surface Antigen Neg (Neg) 08/28/21 HIV (1&2) Ab and P24 Ag, 4th Gener Neg (Neg) 08/28/21 Glucose 1 Hour 50 gm Load 148 mg/dl (70-130) H 08/28/21 OB Optional Labs: Chlamydia trachomatis RNA NOT DETECTED (NOT DETECTED) 08/28/21 Neisseria gonorrhoeae RNA NOT DETECTED (NOT DETECTED) 08/28/21 Labs Reviewed: passed first 2 hour gtt--[facility] declines genetics, afp--[facility] declines cf/sma--[facility] Allergies Allergy/AdvReac Type Severity Reaction Status Date / Time No Known Allergies Allergy Verified 02/04/22 10:59 Home Medications Medication Instructions Recorded Confirmed Type aspirin 81 mg tablet,delayed 81 mg PO DAILY 06/27/21 02/04/22 History release acetone (urine) test (Ketone Urine #50 ea 12/02/21 02/04/22 Rx Test) blood sugar diagnostic (OneTouch #150 ea 12/02/21 02/04/22 Rx Verio test strips) blood-glucose meter (OneTouch #1 ea 01/03/22 03/08/22 Rx Verio Flex meter) lancets 33 gauge (OneTouch Delica #150 ea 12/02/21 02/04/22 Rx Plus Lancet) breast pump #1 ea 12/20/21 02/04/22 Rx prenat.vits,alvarez,ezs-droq-ijrhc 1 tab PO HS 01/07/22 02/04/22 History Patient History Medical History (Updated 02/04/22 @ 22:43 by Cecilio Paige MD) Gestational diabetes No significant past medical history Surgical History No significant past surgical history Social History (Updated 08/19/21 @ 15:23 by Mary Weir) Smoking Status: Never smoker Hx Alcohol Use: No Hx Substance Use: No Preferred Language: Slovak Communication Ability: Effective Mender Hand Required: Yes Beliefs That Will Affect Care: Spiritual and Cultural marital status: marital status details: Mary (36) [phone] Current Living Situation: Spouse and Family Current Living Situation Comment: lvies with spouse and son current occupational status: unemployed Assistive Devices: None Physical Exam Genitourinary: OB Exam Abdomen: + vertex Manual OB Exam: + cervical dilation (5.5) 6 cm, + cervical effacement 80% and + station high OB Exam Monitor Tracing: + external FHT monitor used, + external uterine monitor used, + category I and + normal FHT variability; no early decelerations present, no late decelerations present and no variable decelerations Exam per nurse Coding Level of Care Code None Diagnoses Supervision of normal intrauterine in multigravida Z34.80 Gestational diabetes mellitus (GDM) affecting , antepartum O24.419 Normal labor O80; Z37.9
[2022-02-04 22:51] LABS: Hematocrit (blood only) 30.3 % (37-47); Mean Corpuscular Hemoglobin 28.5 pg (25-34); Mean Corpuscular Volume 86.3 fL (80-100); Mean Platelet Volume 9.7 fL (7.4-10.4); Platelet Count 177 K/uL (130-400); RDW Coefficient of Variation 14.3 % (11.5-14.5); RDW Standard Deviation 44.7 fL (36.4-46.3); Red Blood Count 3.51 M/uL (4.2-5.4); White Blood Count 7.88 K/uL (4.8-10.8)
[2022-02-04] MEDS: LACTATED RINGER'S 1,000 ML IV PRN (23:00)
[2022-02-04] MEDS ORDERED: ePHEDrine sulfate 50 MG/ML AMP ONE (23:04)
[2022-02-04] MEDS ORDERED: fentaNYL citrate 100 MCG/2 ML VIAL ONE (23:04)
[2022-02-04] MEDS ORDERED: SODIUM CHLORIDE 0.9% INJ 10 ML VIAL ONE (23:04)
[2022-02-04] MEDS ORDERED: BUPIVACAINE 0.25% 30 ML VIAL ONE (23:04)
[2022-02-04] MEDS ORDERED: fentaNYL 2MCG/ML ROPIVACAINE 1.25MG/ML 100 ML BAG EPI ONE (23:05)
--- NOTE | 2022-02-04 23:25 | Anesthesiology Consultation ---
Date of Service February 04, 2022 Assessment & Plan ASA ASA2 Proposed Anesthesia Anesthesia Type: Labor Epidural Risk / Benefits Reviewed With: PT / POA / Parent / Guardian, Accepts Plan and Informed Consent Obtained History Allergies Allergy/AdvReac Type Severity Reaction Status Date / Time No Known Allergies Allergy Verified 02/04/22 23:20 Medications Home Medications Medication Instructions Recorded Confirmed Last Taken aspirin 81 mg tablet,delayed 81 mg PO DAILY 06/27/21 02/04/22 01/06/22 release acetone (urine) test (Ketone Urine #50 ea 12/02/21 02/04/22 Unknown Test) blood sugar diagnostic (OneTouch #150 ea 12/02/21 02/04/22 Unknown Verio test strips) blood-glucose meter (OneTouch #1 ea 12/02/21 02/04/22 Unknown Verio Flex meter) lancets 33 gauge (OneTouch Delica #150 ea 12/02/21 02/04/22 Unknown Plus Lancet) breast pump #1 ea 12/20/21 02/04/22 Unknown prenat.vits,alvarez,eih-sdqk-rwywj 1 tab PO HS 01/07/22 02/04/22 01/06/22 Active Medications Generic Name Dose Route Start Last Admin Trade Name Freq PRN Reason Stop Dose Admin Lactated Ringer's 1,000 mls @ 125 mls/hr 02/04/22 22:34 02/04/22 23:00 Lr IV 02/06/22 22:33 999 mls/hr .Q8H PRN Administration L&D Protocol Protocol Past Medical History Medical History Gestational diabetes No significant past medical history Exercise / Class Metabolic Activity II 4-5 Yardwork/Stairs/Walk up hill Past Surgical History Surgical History No significant past surgical history Past Anesthesia History No Hx of Anesthesia Complications and No Family Hx of Anesthesia Complications History of PONV No Hx of PONV and No Hx of Motion Sickness Social History Smoking Status: Never smoker Hx Alcohol Use: No Hx Substance Use: No substance use type: does not use Review of Systems denies fever/cough/ colds/ chest pain/ SOB/ MYLES denies MYLES Physical Exam Vital Signs Last Vital Signs Temp 36.9 C 02/04/22 23:23 Pulse 95 H 02/05/22 00:01 Resp 18 02/04/22 23:23 BP 114/61 02/05/22 00:01 Pulse Ox 99 02/05/22 00:01 ENMT Mouth: no TMJ abnormality and no dentition abnormality Thyromental Distance: > or= 3.5 Finger Breadths Mallampati Class: II Neck neck extension not limited Respiratory normal respiratory effort; no respiratory distress Auscultation: lungs clear to auscultation bilaterally Cardiovascular Rate/Rhythm: regular rate and regular rhythm Neurologic moves all extremities Psychiatric Orientation: alert and oriented x 3 Testing Laboratory Results 02/04/22 22:44 02/04/22 22:47 POC Glucose 115 H
[2022-02-04] MEDS ORDERED: diphenhydrAMINE 50 MG/ML VIAL IV PRN (23:26)
[2022-02-04] MEDS ORDERED: ePHEDrine sulfate 50 MG/ML AMP IV PRN (23:26)
[2022-02-04] MEDS ORDERED: NALOXONE HCL 1 MG in SODIUM CHLORIDE 0.9% 1000ML 1,000 ML IV PRN (23:26)
[2022-02-04] MEDS ORDERED: NALOXONE HCL 0.4 MG/1 ML VIAL/CARP IV PRN (23:26)
[2022-02-04] MEDS ORDERED: NALBUPHINE HCL INJ 10 MG/ML AMP IV PRN (23:26)
[2022-02-04] MEDS ORDERED: fentaNYL 2MCG/ML ROPIVACAINE 1.25MG/ML 100 ML BAG EPI PRN (23:26)
[2022-02-05] MEDS: LACTATED RINGER'S 1,000 ML IV PRN (03:55)
[2022-02-05] MEDS ORDERED: METHYLERGONOVINE MALEATE 0.2 MG/ML AMP IM ONE (04:46)
[2022-02-05] MEDS ORDERED: BENZOCAINE 20% AER SPR 82.5 GM CAN EXT PRN (04:46)
[2022-02-05] MEDS ORDERED: miSOPROStoL 200 MCG TAB PR ONE (04:46)
[2022-02-05] MEDS ORDERED: DIPHTHERIA/TETANUS/PERTUSSIS 0.5 ML SYR/VIAL IM ONE (04:46)
[2022-02-05] MEDS ORDERED: OXYTOCIN 30 UNITS/500 ML BAG IV PRN (04:46)
[2022-02-05] MEDS ORDERED: bisacodyL 10 MG SUPP PR PRN (04:46)
[2022-02-05] MEDS ORDERED: HYDROCORTISONE ACETATE 25 MG SUPP PR PRN (04:46)
[2022-02-05] MEDS: IBUPROFEN 600 MG TAB PO PRN ×2 (06:01→16:09)
--- NOTE | 2022-02-05 07:27 | Anesthesia Procedure Note ---
Date of Service February 05, 2022 Anesthesia Post Epidural Note Vital Signs Vital Signs: Temp Pulse Resp BP Pulse Ox 36.9 C 83 18 112/67 98 02/05/22 04:00 02/05/22 06:48 02/05/22 06:45 02/05/22 06:48 02/05/22 04:41 Pain Intensity Right Hip: Pain Intensity: 3 Bilateral Abdomen: Pain Intensity: 4 Abdomen: Pain Intensity: 2 Notes Mental Status: alert / awake / arousable Nausea / Vomiting: adequately controlled Pain: adequately controlled Airway Patency, RR, SpO2: stable & adequate BP & HR: stable & adequate Hydration State: stable & adequate Neuraxial Anesthesia: was administered and sensory block is resolving Anesthetic Complications: no major complications apparent and Pt Satisfied with anesthetic care Epidural: Removed without complications and With tip intact
[2022-02-05] MEDS: ACETAMINOPHEN 325 MG TAB PO PRN ×2 (07:41→12:01)
[2022-02-05] MEDS: FERROUS SULFATE 325 MG TAB PO SCH (10:28)
[2022-02-05] MEDS: DOCUSATE SODIUM 100 MG CAP PO SCH ×2 (10:28→21:33)
[2022-02-05] MEDS: PRENATAL VITAMIN 1 TAB PO SCH (10:28)
--- NOTE | 2022-02-05 10:49 | Delivery Summary ---
DATE OF SERVICE: 02/05/2022 PROCEDURE: Normal spontaneous vaginal delivery. SURGEON: Cecilio Paige MD. PREOPERATIVE DIAGNOSES: 1. Single intrauterine at 39 weeks 6 days gestational age. 2. Spontaneous labor. 3. Diet-controlled gestational diabetes. 4. 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 POSTOPERATIVE DIAGNOSES: 1. Single intrauterine at 39 weeks 6 days gestational age. 2. Spontaneous labor. 3. Diet-controlled gestational diabetes. 4. 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 5. Status post procedure. ESTIMATED BLOOD LOSS: 300 mL. DRAINS: None. FLUIDS: Continuous lactated Ringer. URINE OUTPUT: Not measured. COMPLICATIONS: None. FINDINGS: Viable female with weight pending and Apgars of 8 and 9 at one and five minutes respectively. INDICATIONS: The patient is a 37-year-old , admitted at 39w5d gestational age in active labor. The patient progressed in labor without augmentation. She did undergo artificial rupture of membranes, received an epidural for anesthesia and progressed to complete-complete, +2 station, at which time she felt the urge to push. DESCRIPTION OF PROCEDURE: The patient progressed to 10 cm dilated, 100% effaced, positive 2 station, pushed over intact perineum with epidural anesthesia and delivered a viable female infant with weight and Apgars as noted above. Head of the delivered in REG position, restituted to left transverse. Single loose nuchal cord was noted, which was easily reduced. Body and shoulders quickly followed. was noted to be vigorous soon after delivery and a 1 minute delayed cord clamping was initiated. Cord was then double clamped and cut. remained on maternal abdomen. Cord blood was obtained. Attention was then turned to delivery of placenta, which was delivered intact, 3-vessel cord, gentle cord traction. On inspection of the perineum, vagina, cervix, there was noted to be no lacerations. Sponge and instrument counts were correct at the completion of the case. Both mother and were stable in the immediate post-delivery period. Job ID: [id number] [facility]
[2022-02-06] MEDS: IBUPROFEN 600 MG TAB PO PRN ×5 (00:12→21:25)
--- NOTE | 2022-02-06 05:59 | Obstetrical Progress Note ---
Date of Service <Johnathon Garcia MD - Last Filed: 02/06/22 06:54> February 06, 2022 Assessment & Plan <Johnathon Garcia MD - Last Filed: 02/06/22 06:54> (1) Vaginal delivery: 37 yo , complicated by GDMA1, now PPD1 from at 39wk5d -Continue routine care, can discharge today pending pt preference -Vitals reviewed- HDS, afebrile -Blood type A+, GBS-, Rubella immune -Encourage ambulation, regular diet -Pain control with ibuprofen, acetaminophen PRN -Encourage -Hgb 9.6 today, asymptomatic -F/u in 6 weeks with OB <Krystyna Milligan MD, FACOG - Last Filed: 02/06/22 07:33> (1) Vaginal delivery: Subjective <Johnathon Garcia MD - Last Filed: 02/06/22 06:54> Ambulation: ambulating normally Voiding: no voiding problems Passing Gas:: Yes Diet Tolerance:: regular diet Lochia:: Small Feeding Type:: breast feeding Current Pain Level(1-10): 0 Pt sleeping on exam, interval history gathered from at bedside. Pt apparently doing well overall, no acute complaints or distress. Pain well controlled with medication. Reportedly had BM last night. Some soreness of nipples with . Review of Systems Per 's report Denies fever/chills. Denies dyspnea, cough. Denies chest pain. Denies breast pain or discharge. Denies dysuria. Denies headache. Denies back pain. Physical Exam <Johnathon Garcia MD - Last Filed: 02/06/22 06:54> Exam deferred due to pt sleeping and gnosticism preferences for female provider General: sleeping comfortably Results & Data ([facility]) <Johnathon Garcia MD - Last Filed: 02/06/22 06:54> Vital Signs (Past 12 Hours) Vital Signs Temp Pulse Resp BP Pulse Ox 02/06/22 04:52 36.6 C 62 16 122/78 02/06/22 00:05 36.5 C 72 16 114/73 02/05/22 19:40 36.6 C 76 20 103/69 96 <Krystyna Milligan MD, FACOG - Last Filed: 02/06/22 07:33> Co-Signing Physician Notes Resident Physician Supervision Note: I interviewed and examined the patient. Discussed with Dr. Garcia and agree with findings and plan as documented in the note. Any exceptions or clarifications are listed here: Doing well. on exam ff/nt 1 below u. Has some generalized tenderness to palpation of the abdomen. complains of cramping abd pain, hemorrhoid issues, gas pain. All will be treated. Plan d/c tomorrow. Documented By: Krystyna Milligan MD, FACOG Resident Activity Tracking <Johnathon Garcia MD - Last Filed: 02/06/22 06:54> Resident Involvement: Resident Care Provided Care Provided: OB Delivery
[2022-02-06 06:15] LABS: Hematocrit (blood only) 29.6 % (37-47); Hemoglobin 9.6 g/dL (12.0-16.0)
[2022-02-06] MEDS: PRENATAL VITAMIN 1 TAB PO SCH (07:41)
[2022-02-06] MEDS: DOCUSATE SODIUM 100 MG CAP PO SCH ×2 (07:41→21:25)
[2022-02-06] MEDS: FERROUS SULFATE 325 MG TAB PO SCH (07:41)
[2022-02-06] MEDS: SIMETHICONE 80 MG CHEW PO PRN ×2 (09:16→17:08)
[2022-02-06] MEDS ORDERED: HYDROCORTISONE HC 2.5% CRM 30GM TUBE EXT PRN (09:52)
[2022-02-06] MEDS ORDERED: bisacodyL 5 MG TABEC PO SCH (20:00)
[2022-02-07] MEDS: IBUPROFEN 600 MG TAB PO PRN ×2 (01:38→08:39)
--- NOTE | 2022-02-07 08:04 | Obstetrical Progress Note ---
Date of Service February 07, 2022 Assessment & Plan (1) Encounter for care and examination after delivery: satisfactory course I suspect the gas pains are uterine cramping. will try heating pad and continue Mylicon as needed discharge to home follow up in 6 weeks. Subjective Ambulation: ambulating normally Voiding: no voiding problems Passing Gas:: Yes Diet Tolerance:: regular diet Lochia:: Small Feeding Type:: breast feeding c/o of gas pains Review of Systems All systems reviewed & are unremarkable except as noted in HPI & below Physical Exam Constitutional WD/WN, vitals as above Psychiatric A+Ox3, euthymic affect Genitourinary OB Exam Abdomen: + fundal height Fundus: + firm and + relation to umbilicus (2 below) no calf tenderness Results & Data ([facility]) Vital Signs (Past 12 Hours) Vital Signs Temp Pulse Resp BP Pulse Ox 02/06/22 23:50 98.6 F 74 18 115/76 96
[2022-02-07] MEDS: PRENATAL VITAMIN 1 TAB PO SCH (08:38)
[2022-02-07] MEDS: DOCUSATE SODIUM 100 MG CAP PO SCH (08:38)
[2022-02-07] MEDS: FERROUS SULFATE 325 MG TAB PO SCH (08:38)
[2022-02-07] MEDS: SIMETHICONE 80 MG CHEW PO PRN (08:38)
== END 2022-02-07 13:45 | disposition home or self-care (01) | DRG 807 ==
LOC: OPB 22:28 → 4S1 22:29 → 4S2 02-05 02:17 → 4S1 02-05 02:23 → 4S2 02-05 13:02